=== PATIENT | male | born 1995 | race Caucasian/White ===

== ENCOUNTER 2023-10-21 11:05 | Emergency (ER) | payer SELFPAY ==
[~2023-10-21] VITALS: Ht 175.3 cm; Wt 104.5 kg
[2023-10-21 11:09] VITALS: TEMP 98.3
[2023-10-21 11:59] VITALS: BP 131/70; PULSE 91
== END 2023-10-21 11:59 | disposition home or self-care (01) ==
LOC: COL.ER 11:05
DX: S90.112A Contusion of left great toe without damage to nail, initial encounter (principal); X58.XXXA Exposure to other specified factors, initial encounter

== ENCOUNTER 2023-10-21 14:44 | Emergency (ER) | payer SELFPAY ==
[~2023-10-21] VITALS: Ht 175.3 cm; Wt 104.5 kg
[2023-10-21 14:47] VITALS: TEMP 97.9
[2023-10-21 15:15] VITALS: BP 141/86; PULSE 89
== END 2023-10-21 15:16 | disposition home or self-care (01) ==
LOC: COL.ER 14:44
DX: L03.032 Cellulitis of left toe (principal)